=== PATIENT | female | born 1960 | race Caucasian/White ===

== ENCOUNTER → 2016-11-23 | Outpatient (REF) | payer OTHER ==
[~2016-11-23] MED LIST: AMBI10TA PO; ASPI81TA85 PO; LISI40TAB PO
== END ==
LOC: M LAB REF 16:56
PROVIDERS: ATTEND Nurse Practitioner Family
DX: N39.0 Urinary tract infection, site not specified (principal)

== ENCOUNTER → 2017-01-25 | Outpatient (CLI) | payer OTHER ==
--- NOTE | 2017-01-26 04:12 | REP ---
Clinical: Hypothyroidism Technique: Real time ahn scale and color evaluation using linear high frequency transducer. Findings: The thyroid gland is diffusely heterogeneous and demonstrates bilateral nonspecific nodules. Right lobe measures 4.1 x 1.7 x 1.6 cm with the largest nodule in the mid pole being hyperemic, isoechoic and measuring 9.5 mm maximal diameter. Smaller isoechoic and hypoechoic nonspecific complex nodules in the right lobe measure up to 5.5 mm maximal diameter. Left lobe measures 3.4 x 1.3 x 1.3 cm with multiple isoechoic/hypoechoic nonspecific complex nodules measuring up to 6.4 mm maximal diameter. Impression: Multiple nonspecific nodules noted bilaterally. Largest nodule appears hyperemic within the right lobe and measures 9.5 mm maximal diameter. Signed by Donaldo Hackett MD 01/26/2017 04:04 A
== END ==
LOC: M RAD 13:04
PROVIDERS: ATTEND Physician Assistant Medical
DX: E03.9 Hypothyroidism, unspecified (principal)

== ENCOUNTER → 2017-03-26 | Outpatient (REF) | payer OTHER | LOC: M LAB REF 13:11 | PROVIDERS: ATTEND Internal Medicine Endocrinology, Diabetes & Metabolism | DX: E04.1 Nontoxic single thyroid nodule (principal) ==

== ENCOUNTER → 2018-01-18 | Outpatient (CLI) | payer OTHER ==
[2018-01-18 12:02] LABS: BASO % 0.6 % (0.0-1.0); EOS # 0.1 10^3/uL (0.0-0.50); EOS % 1.4 % (0.0-3.0); HEMATOCRIT 44.3 % (36.0-47.0); HEMOGLOBIN 14.9 g/dl (12.0-15.5); IMMATURE GRANULOCYTE % 0.3 % (0-3.0); LYMPH # 2.2 10^3/uL (1.5-4.5); LYMPH % 31.2 % (24.0-44.0); MEAN CORPUSCULAR HGB CONC 33.6 g/dl (32.0-36.5); MEAN CORPUSCULAR VOLUME 89.1 fl (80.0-96.0); MONO # 0.4 10^3/uL (0.0-0.8); MONO % 5.3 % (0.0-5.0); NEUTROPHILS # 4.3 10^3/uL (1.8-7.7); NEUTROPHILS % 61.2 % (36.0-66.0); PLATELET COUNT, AUTOMATED 190 10^3/uL (150-450); RED BLOOD COUNT 4.97 10^6/uL (4.00-5.40)
[2018-01-18 12:50] LABS: ALBUMIN 4.6 GM/DL (3.2-5.2); ALBUMIN/GLOBULIN RATIO 1.35 (1.00-1.93); ALKALINE PHOSPHATASE 49 U/L (45-117); ALT/SGPT 20 U/L (12-78); ANION GAP 6 MEQ/L (8-16); AST/SGOT 16 U/L (7-37); BILIRUBIN,TOTAL 0.3 MG/DL (0.2-1.0); BLOOD UREA NITROGEN 25 MG/DL (7-18); C REACTIVE PROTEIN QUANTITATIV 0.32 MG/DL (0.00-0.30); CALCIUM LEVEL 9.3 MG/DL (8.5-10.1); CARBON DIOXIDE LEVEL 26 MEQ/L (21-32); CHLORIDE LEVEL 110 MEQ/L (98-107); CPK CREATINE PHOSPHOKINASE 81 U/L (26-192); GLOMERULAR FILTRATION RATE > 60.0 (>51); GLUCOSE, FASTING 91 MG/DL (70-100); POTASSIUM SERUM 4.5 MEQ/L (3.5-5.1); SODIUM LEVEL 142 MEQ/L (136-145); TROPONIN I < 0.02 NG/ML (< 0.10)
[2018-01-18 12:57] LABS: CK-MB VALUE MASS < 1.0 NG/ML (<3.6); MB/CK RELATIVE INDEX 1.23 (< OR =4)
== END ==
LOC: M WUC 10:22
DX: I10 Essential (primary) hypertension (principal)
CPT/HCPCS: 82550

== ENCOUNTER → 2018-10-14 | Outpatient (CLI) | payer OTHER ==
[~2018-10-14] MED LIST changes: +AMBI12.52 PO; +LISI40TA PO; +MOBI15TA PO; +VARE1TA PO; +VITMTA PO
--- NOTE | 2018-10-14 10:04 | REP ---
Chest two views HISTORY: Preop Comparison: None The lungs are clear. The heart is normal in size. The pulmonary vasculature is normal in appearance. The bony structure is intact. IMPRESSION: No acute disease. Electronically Signed by Monroe Keys MD 10/14/2018 09:56 A
[2018-10-14 10:19] LABS: HEMATOCRIT 36.8 % (36.0-47.0); HEMOGLOBIN 12.1 g/dl (12.0-15.5); MEAN CORPUSCULAR HEMOGLOBIN 30.3 pg (27.0-33.0); MEAN CORPUSCULAR HGB CONC 32.9 g/dl (32.0-36.5); PLATELET COUNT, AUTOMATED 154 10^3/uL (150-450); WHITE BLOOD COUNT 7.2 10^3/uL (4.0-10.0)
[2018-10-14 10:26] LABS: INR 0.95; PROTHROMBIN TIME 12.7 SECONDS (12.1-14.4)
[2018-10-14 10:46] LABS: ALBUMIN 3.5 GM/DL (3.2-5.2); ALT/SGPT 187 U/L (12-78); BILIRUBIN,TOTAL 0.3 MG/DL (0.2-1.0); BLOOD UREA NITROGEN 19 MG/DL (7-18); CARBON DIOXIDE LEVEL 25 MEQ/L (21-32); CHLORIDE LEVEL 105 MEQ/L (98-107); CREATININE FOR GFR 0.62 MG/DL (0.55-1.30); GLOMERULAR FILTRATION RATE > 60.0 (>51); GLUCOSE, FASTING 115 MG/DL (70-100); POTASSIUM SERUM 3.8 MEQ/L (3.5-5.1); SODIUM LEVEL 138 MEQ/L (136-145); TOTAL PROTEIN 7.4 GM/DL (6.4-8.2)
[2018-10-14 10:51] LABS: ERYTHROCYTE SEDIMENTATION RATE 56 mm/hr (0-30)
--- NOTE | 2018-10-14 22:04 | ECGEPIP ---
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 No prior ECG available for comparison at the time of interpretation. Electronically Signed On 10-14-2018 22:04:09 EST by Jean-Paul Hinojosa
== END ==
LOC: M LAB 09:28
PROVIDERS: ATTEND Orthopaedic Surgery
DX: Z01.818 Encounter for other preprocedural examination (principal)

== ENCOUNTER 2018-10-24 07:09 | Inpatient (IN) | payer OTHER ==
--- NOTE | 2018-10-20 14:02 | HPE ---
DATE OF ADMISSION: 10/24/2018 ATTENDING PHYSICIAN: Dr. Madhav Gonzalez CHIEF COMPLAINT: Right hip pain and stiffness. HISTORY: This is a pleasant 58-year-old female with progressively worsening right hip pain and stiffness. She has failed to improve with conservative management and has elected for surgery for her continued symptoms. She has consented for a right total hip arthroplasty by Dr. Gonzalez. ALLERGIES: - PENICILLIN CURRENT MEDICATIONS: - Ambien 5 mg one by mouth (p.o.) at bedtime as needed (p.r.n.) - aspirin 81 mg one p.o. daily - carvedilol 3.125 mg one p.o. twice a day (b.i.d.) - lisinopril 40 mg one p.o. daily (q.d.) - meloxicam 7.5 mg one p.o. daily - tramadol 50 mg one every 4-6 hours p.r.n. - vitamin D 2000 units one p.o. daily PAST MEDICAL HISTORY: Hypertension. PAST SURGICAL HISTORY: Noncontributory. FAMILY HISTORY: Noncontributory. SOCIAL HISTORY: The patient is a nonsmoker and only drinks alcohol occasionally. REVIEW OF SYSTEMS: She denies fever, chills, chest pain, shortness breath, nausea, vomiting, diarrhea, recent upper respiratory or urinary tract infection symptoms. Does report pain and stiffness in the right hip. PHYSICAL EXAMINATION: Vital Signs: Height 5 feet 4 inches, weight 143, temperature 98.1, blood pressure 140/60, pulse 62, respirations 18. The patient is normocephalic, atraumatic. She ambulates into the clinic today with a slightly antalgic gait favoring the right side. Neck is supple with no lymphadenopathy or jugular venous distention (JVD). S1 and S2 auscultated. No murmurs, rubs or gallops. Lungs were clear to auscultation bilaterally with no wheezes, rales, or rhonchi. Abdomen is soft and nontender. The right hip shows intact range of motion with pain at the extremes of motion. Overlying skin is intact with no erythema, ecchymosis or edema. ELECTROCARDIOGRAM (EKG): Shows normal sinus rhythm. CHEST X-RAY: With no acute cardiopulmonary processes. LABORATORY FINDINGS: Show a white blood count of 7.2, red blood count 4.0, hemoglobin 12.1, hematocrit 36.8, ESR 56, BUN 19, creatinine 0.62, PT 12.7, INR 0.95. PREOPERATIVE MEDICAL OPTIMIZATION: Done by Dr. Barker, but is not available for review. Cardiac consultation was reviewed today on the patient's chart. IMPRESSION: Right hip with symptomatic degenerative changes. PLAN: Consented for right hip total arthroplasty by Dr. Gonzalez.
[2018-10-24] VITALS (11 sets, daily range): BP systolic 111–156; BP diastolic 65–92
[~2018-10-24] VITALS: Ht 160 cm; Wt 67.1 kg
[~2018-10-24 07:09] MED LIST changes: +ACETAMINOPHEN 500 MG TAB PO ONE; +LR 1,000 ML IV ONE
[2018-10-24] MEDS ORDERED: CARV3.12 PO (08:11)
[2018-10-24] MEDS ORDERED: MUPI2OI (08:11)
[2018-10-24] MEDS ORDERED: SCOPOLAMINE 1MG TRANSDERMAL PATCH TOP ONE ×2 (08:15→09:00)
[2018-10-24] MEDS ORDERED: CARVedilol 3.125 MG TAB PO ONE (09:00)
[2018-10-24] MEDS ORDERED: PROPOFOL 200 MG/20 ML VIAL As Ordered ONE (09:36)
[2018-10-24] MEDS ORDERED: MIDAZOLAM INJ 5 MG/ML VIAL (J2250) As Ordered ONE (09:36)
[2018-10-24] MEDS ORDERED: fentaNYL 100 MCG/2 ML INJECTION (J3010) As Ordered ONE (09:36)
[2018-10-24] MEDS ORDERED: ceFAZolin 1GM INJ (J0690 PER 500MG) As Ordered ONE (10:11)
[2018-10-24] MEDS ORDERED: BUPIVACAINE/DEXTROSE 0.75% 2 ML AMP As Ordered ONE (10:30)
[2018-10-24] MEDS ORDERED: PHENYLephrine HCL 500 MCG/5 ML (100MCG/ML) SYRINGE (J2370) As Ordered ONE ×2 (10:51→11:16)
[2018-10-24] MEDS ORDERED: MORPHINE 1MG/ML IN 0.9% NACL 100ML IV BAG As Ordered ONE (12:00)
[2018-10-24] MEDS ORDERED: METOCLOPRAMIDE INJ 10MG/2ML VIAL (J2765) IV PRN (12:45)
[2018-10-24] MEDS ORDERED: PERCOCET 5MG/325MG TAB PO PRN (12:45)
[2018-10-24] MEDS ORDERED: ONDANSETRON 4MG/2ML VIAL (J2405) IV PRN ×2 (12:45→13:00)
[2018-10-24] MEDS ORDERED: fentaNYL 100 MCG/2 ML INJECTION (J3010) IV PRN (12:45)
[2018-10-24] MEDS ORDERED: MEPERIDINE INJ 25 MG/ML VIAL (J2175) IV PRN (12:45)
[2018-10-24] MEDS ORDERED: LR 1,000 ML IV SCH (12:45)
[2018-10-24] MEDS ORDERED: diphenhydrAMINE INJ 50MG/ML VIAL (J1200) IV PRN (13:00)
[2018-10-24] MEDS ORDERED: ACETAMINOPHEN TAB 650MG DOSE (2X325MG) PO PRN (13:00)
[2018-10-24] MEDS ORDERED: NALOXONE INJ 0.4 MG/1 ML VIAL (J2310) IV PRN (13:00)
[2018-10-24] MEDS ORDERED: FLEET ENEMA PR PRN (13:00)
[2018-10-24] MEDS: LR 1,000 ML IV SCH (13:00)
[2018-10-24] MEDS ORDERED: MORPHINE 1MG/ML IN 0.9% NACL 100ML IV BAG IV PRN (13:00)
[2018-10-24] MEDS ORDERED: EPIDURAL/PCA KEYS XX PRN (13:00)
[2018-10-24] MEDS ORDERED: NALBUPHINE HCL 10 MG/ML AMP (J2300) IV PRN (13:00)
[2018-10-24] MEDS ORDERED: CelecoXIB (CeleBREX) 100 MG CAP PO ONE (15:15)
--- NOTE | 2018-10-24 15:19 | REP ---
RIGHT HIP, TWO VIEWS: Two portable of the right hip were performed. There is placement of a total hip prosthesis which appears to be in good position. Osseous structures are intact. There is spurring of the superolateral acetabulum. Metallic skin crystal are seen laterally. Electronically Signed by Billy Moore MD 10/24/2018 05:11 P
[2018-10-25 01:30] VITALS: BP 132/83
[2018-10-25] MEDS: LR 1,000 ML IV SCH (01:30)
[2018-10-25 06:00] VITALS: BP 132/83
[2018-10-25] MEDS ORDERED: PERCOCET 5MG/325MG TAB PO PRN ×2 (06:30)
[2018-10-25] MEDS ORDERED: ONDANSETRON 4 MG TAB (S0181) PO PRN (06:30)
[2018-10-25 06:35] LABS: HEMATOCRIT 34.8 % (36.0-47.0); HEMOGLOBIN 11.4 g/dl (12.0-15.5); MEAN CORPUSCULAR HEMOGLOBIN 29.7 pg (27.0-33.0); MEAN CORPUSCULAR HGB CONC 32.8 g/dl (32.0-36.5); MEAN CORPUSCULAR VOLUME 90.6 fl (80.0-96.0); PLATELET COUNT, AUTOMATED 150 10^3/uL (150-450); RED BLOOD COUNT 3.84 10^6/uL (4.00-5.40); WHITE BLOOD COUNT 6.9 10^3/uL (4.0-10.0)
[2018-10-25 06:53] LABS: BLOOD UREA NITROGEN 9 MG/DL (7-18); CALCIUM LEVEL 8.6 MG/DL (8.5-10.1); CARBON DIOXIDE LEVEL 26 MEQ/L (21-32); CHLORIDE LEVEL 100 MEQ/L (98-107); GLOMERULAR FILTRATION RATE > 60.0 (>51); GLUCOSE, FASTING 114 MG/DL (70-100); POTASSIUM SERUM 4.1 MEQ/L (3.5-5.1); SODIUM LEVEL 133 MEQ/L (136-145)
[2018-10-25] MEDS ORDERED: PERC5TAB12 PO (08:21)
[2018-10-25] MEDS ORDERED: XARE10TA PO (08:21)
[2018-10-25] MEDS ORDERED: SENOKOT S TAB PO SCH (09:00)
[2018-10-25] MEDS ORDERED: MOM 30ML SUSPENSION UDC PO SCH (09:00)
[2018-10-25] MEDS ORDERED: MIRALAX *UNIT DOSE* 17GM PACKET PO SCH (09:00)
--- NOTE | 2018-10-25 10:22 | RO ---
DATE OF OPERATION: 10/24/2018 PREOPERATIVE DIAGNOSIS: Right hip degenerative arthritis. POSTOPERATIVE DIAGNOSIS: Right hip degenerative arthritis. PROCEDURE: Right total hip arthroplasty using a size 5 high-offset [place] stem with a 1.5 neck, 32 mm ceramic head, and a 50 mm Gription cup with a 32 mm polyethylene AltrX liner. SURGEON: Tori Gonzalez MD COMPUTER REPAIR INSTRUCTOR: CHAYO Kaba ANESTHESIA: Spinal. COMPLICATIONS: None. ESTIMATED BLOOD LOSS: 200 mL. SPECIMENS: Femoral head. DESCRIPTION OF PROCEDURE: Antibiotics were given intravenously preoperatively, and a successful spinal anesthetic was induced. She was placed in a lateral position. A [place] hip positioner was utilized. Down leg well padded, especially the perineal nerve, and the axillary roll was utilized. The right hip area was then carefully prepped and draped in the usual sterile fashion. After appropriate time-out, a longitudinal incision was made for a direct anterolateral approach to the hip. Bovie cautery was used to coagulate crossing vessels down to the tensor fascia, which was then divided in line with the skin incision. Then, the gluteus medius split in the anterior one-third and posterior two-third junction. We dissected down to the gluteus minimus and anterior hip capsule, carefully dissected down, and reflect the soft tissues anteriorly off the greater trochanter as we then eventually externally rotated and dislocated the hip and placed her leg in a leg bag anteriorly. The pyriformis fossa was identified. A starter reamer placed, followed by the canal-finding reamer, then the lateralizing reamer. Then, we reamed up to a size 5 reamer. A femoral neck osteotomy performed and broached up to a #5, calcar planer utilized. We then exposed the acetabulum, performed a labral excision 360 degrees, and then began reaming. She was quite dysplastic and lateralized, and we had to deepen the cup a bit to get back down to the teardrop starting at a 46 mm and advancing up to 49. The trial fit nicely at 50 using the extramedullary alignment jig. We then asked for the real Gription cup, irrigating out the acetabulum thoroughly and then placed the real cup with the assistance of the extramedullary alignment jig to help set our abduction and version. The cup seated nicely and fit nicely, and then the central hole eliminator was placed, irrigated again, and placed the real polyethylene, made sure it was seated properly, and then exposed the femoral canal once again, and copiously irrigated it, placed the broach, trialed with the high-offset 1.5, and that fit very nicely in terms of stability and with flexion internal rotation and extension external rotation. She had a trace of telescoping but not enough to justify going to a +5. We then removed all the trial components and copiously irrigated out the femoral canal, placed the real stem, and it seated just where we were with the broach. Therefore, I went with a 1.5 neck. After drying the trunnion, placed the ceramic head, and then we reduced the hip after irrigating once again. We then closed the gluteus minimus and anterior capsule back anatomically with interrupted #1 polydioxanone suture (PDS) sutures, closing the abductor gluteus minimus muscle back anatomically with interrupted #1 PDS suture, irrigating between layers, closed the tensor fascia with combination of [place] #1 PDS sutures and a running Stratafix #1. We then irrigated again, closed the deep subdermal tissues with interrupted #2-0 PDS sutures. The skin was closed with crystal, covered by an Optifoam dry sterile bulky dressing. She was then turned supine and then transferred to the recovery room in stable condition. There were no intraoperative complications. Mr. Tee Gill was critical to the success of this difficult surgery by helping to manipulate the leg in and out of the leg bag anteriorly, helped with appropriate soft tissue retraction, helped to close the wound, helped to prepare the patient otherwise, amongst many other tasks to allow me to perform the operation smoothly and efficiently.
[2018-10-25] MEDS ORDERED: RIVAROXABAN 10 MG TAB (XARELTO) PO SCH (18:00)
== END 2018-10-25 11:20 | disposition home or self-care (01) | DRG 301 ==
LOC: M OR 07:09 → M MS5PR 13:10
PROVIDERS: ADMIT Orthopaedic Surgery; ATTEND Orthopaedic Surgery
PROC: 0SR90JA Replacement of Right Hip Joint with Synthetic Substitute, Uncemented, Open Approach (ICD-10-PCS; principal; 2018-10-24 09:45)
DX: M16.11 Unilateral primary osteoarthritis, right hip (principal); I10 Essential (primary) hypertension; Z88.0 Allergy status to penicillin; Z79.899 Other long term (current) drug therapy; Z79.82 Long term (current) use of aspirin

== ENCOUNTER → 2019-05-22 | Outpatient (CLI) | payer OTHER ==
[~2019-05-22] MED LIST changes: -ACETAMINOPHEN 500 MG TAB PO ONE; +CARV3.12 PO; +LISI40TA52 PO; -LISI40TAB PO; -LR 1,000 ML IV ONE; +MUPI2OI; +PERC5TAB12 PO; +XARE10TA PO
--- NOTE | 2019-05-22 09:49 | REP ---
Low-dose lung screening CT of the chest: The study is performed without IV contrast. The images are presented at lung windowing only. There are no comparison CT studies. There is a comparison plain film PA and lateral study of the chest dated 10/14/2018. There is a 7 mm nodule medially in the apex of the left upper lobe on image 12. This is not visible on the comparison PA and lateral plain film study. There are no other nodules or masses. There are no infiltrates or effusions. There are is a small linear density in the right lower lobe and a small linear density in the left lower lobe. These likely represent parenchymal scars or discoid atelectasis. Impression: The 7 mm nodule medially in apex of the left upper lobe is a category 3.0 lung nodule. The probability of malignancy is 1%-2%. Follow-up chest CT in 6 months is recommended for further evaluation. Electronically Signed by Billy Hahn MD 05/22/2019 09:40 A
== END ==
LOC: M RAD 08:03
PROVIDERS: ATTEND Student in an Organized Health Care Education/Training Program
DX: Z12.2 Encounter for screening for malignant neoplasm of respiratory organs (principal); F17.210 Nicotine dependence, cigarettes, uncomplicated

== ENCOUNTER 2019-06-13 06:40 | Day surgery (SDC) | payer OTHER ==
[~2019-06-13] VITALS: Ht 162.6 cm; Wt 66.7 kg
[~2019-06-13 06:40] MED LIST changes: +ECOT81TA5 PO; +IRON325T9 PO
[2019-06-13] MEDS ORDERED: NS 1,000 ML IV ONE (07:00)
[2019-06-13] MEDS ORDERED: LIDOCAINE 2% INJ 100 MG/5 ML SDV (FOR ANES.) As Ordered ONE (07:20)
[2019-06-13] MEDS ORDERED: PROPOFOL 200 MG/20 ML VIAL As Ordered ONE (07:20)
--- NOTE | 2019-06-13 07:55 | ROOR ---
Patient Name: Debora Bang Procedure Date: 06/13/2019 7:38 AM Date of : 1960 Age: 59 Room: [facility] Gender: Female Note Status: Finalized Procedure: Colonoscopy Indications: High risk colon cancer surveillance: Personal history of colonic polyps, Last colonoscopy: February 2016 Providers: Jean-Paul GASTON MD Referring MD: [facility] YENNI Monica [facility] Kimberly Requesting Provider: Medicines: Monitored Anesthesia Care Complications: No immediate complications. Procedure: Pre-Anesthesia Assessment: - The heart rate, respiratory rate, oxygen saturations, blood pressure, adequacy of pulmonary ventilation, and response to care were monitored throughout the procedure. The Colonoscope was introduced through the anus and advanced to the cecum, identified by appendiceal orifice and ileocecal valve. The colonoscopy was performed without difficulty. The patient tolerated the procedure well. The quality of the bowel preparation was good. Findings: The perianal and digital rectal examinations were normal. A diminutive polyp was found in the hepatic flexure. The polyp was sessile. The polyp was removed with a cold snare. Resection and retrieval were complete. Retroflexion in the right colon was performed. A tattoo was seen in the sigmoid colon. A post-polypectomy scar was found at the tattoo site. There was no evidence of residual polyp tissue. The exam was otherwise without abnormality on direct and retroflexion views. Impression: - One diminutive polyp at the hepatic flexure, removed with a cold snare. Resected and retrieved. - A tattoo was seen in the sigmoid colon. A post-polypectomy scar was found at the tattoo site. There was no evidence of residual polyp tissue. - The examination was otherwise normal on direct and retroflexion views. Recommendation: - Repeat colonoscopy in 5 years for surveillance. Jean-Paul Gaston MD Jean-Paul GASTON MD 06/13/2019 7:54:30 AM Electronically signed by Jean-Paul GASTON MD Number of Addenda: 0 Note Initiated On: 06/13/2019 7:38 AM Estimated Blood Loss: Estimated blood loss: none.
[2019-06-13 08:16] VITALS: BP 162/76
== END 2019-06-13 08:18 | disposition home or self-care (01) ==
LOC: M OPP 06:40
PROVIDERS: ATTEND Internal Medicine Gastroenterology
DX: Z12.11 Encounter for screening for malignant neoplasm of colon (principal); Z86.010 Personal history of colon polyps; D12.3 Benign neoplasm of transverse colon; Z79.899 Other long term (current) drug therapy; Z88.0 Allergy status to penicillin

== ENCOUNTER → 2019-12-05 | Outpatient (CLI) | payer OTHER ==
--- NOTE | 2019-12-05 15:45 | REPVR ---
PROCEDURE INFORMATION: Exam: CT Chest Without Contrast Exam date and time: 12/05/2019 3:13 PM Age: 59 years old Clinical indication: Condition or disease; Lung condition and disease; Pulmonary nodule, solitary; Additional info: Lung nodule TECHNIQUE: Imaging protocol: Computed tomography of the chest without contrast. 3D rendering: MIP and/or 3D reconstructed images were created by the technologist. Radiation optimization: All CT scans at this facility use at least one of these dose optimization techniques: automated exposure control; mA and/or kV adjustment per patient size (includes targeted exams where dose is matched to clinical indication); or iterative reconstruction. COMPARISON: Chest CT 05/22/19 The prior report is not available for correlation at the time of interpretation. FINDINGS: Lungs: Emphysematous change and mild interstitial prominence. Stable 5.5 mm well-circumscribed nodule in the medial left apex. For patients at low risk (minimal or absent history of smoking and of other known risk factors), no routine follow-up is indicated. For patients at high risk (history of smoking or of other known risk factors), consider optional CT at 12 months. (Mitesh et al., Fleischner Society, 2017). Pleural space: Mild pleural thickening. Heart: No cardiomegaly or significant pericardial effusion. Aorta: Calcification and ectasia of the thoracic aorta. Lymph nodes: Subcentimeter lymph nodes. Bones/joints: Schmorl's nodes and marginal osteophytes. Upper abdomen: Punctate calcification in the left hepatic lobe. IMPRESSION: 1. Stable 5.5 mm well-circumscribed nodule in the medial left apex. 2. Additional findings as described above. Electronically signed by: Milan Alarcon On 12/05/2019 15:44:53 PM
== END ==
LOC: M RAD 15:02
PROVIDERS: ATTEND Student in an Organized Health Care Education/Training Program
DX: R91.1 Solitary pulmonary nodule (principal)

== ENCOUNTER → 2020-10-02 | Outpatient (CLI) | payer OTHER ==
[~2020-10-02] MED LIST changes: -ASPI81TA85 PO; +ASPI81TA86 PO
--- NOTE | 2020-10-02 10:44 | REPMRS ---
Patient History The patient states she had a clinical breast exam in July 2020. No known family history of cancer. Digital Woman Screen Mammo: October 02, 2020 - Exam #: [id number] Bilateral CC and MLO view(s) were taken. Technologist: Jade Chowdary, Technologist Prior study comparison: July 13, 2019, bilateral digital mammo screening bilat, performed at [facility]. May 07, 2015, left breast digital mammo diagnostic unilateral, performed at [facility]. May 01, 2015, bilateral digital mammo screening bilat, performed at [facility]. FINDINGS: There are scattered fibroglandular densities. The Volpara volumetric breast density category is:B. There has been no change in the appearance of the mammogram from the prior studies. There is a mild amount of scattered fibroglandular density which is fairly symmetric. There is no interval development of dominant mass, architectural distortion, or grouped microcalcification suggestive of malignancy. 3-D tomosynthesis shows no additional findings. Assessment: BI-RADS/ACR category 1 mammogram. Negative Mammogram. Recommendation Routine screening mammogram of both breasts in 1 year (for women over age 40). This patient's [facility] Lifetime Breast Cancer Risk is estimated at 6.6 %. This mammogram was interpreted with the aid of an FDA-approved computer-aided dectection system. Electronically Signed By: Lacho Segal MD 10/02/20 2122
== END ==
LOC: M WHC 10:05
PROVIDERS: ATTEND Student in an Organized Health Care Education/Training Program
DX: Z12.31 Encounter for screening mammogram for malignant neoplasm of breast (principal)

== ENCOUNTER → 2020-10-15 | Outpatient (REF) | payer OTHER | LOC: M SFHCPLAZ 08:47 | PROVIDERS: ATTEND Family Medicine | DX: Z13.220 Encounter for screening for lipoid disorders (principal) ==

== ENCOUNTER → 2020-11-25 | Outpatient (CLI) | payer OTHER ==
[~2020-11-25] MED LIST changes: -LISI40TA PO; +LISI40TA4 PO
[2020-11-25 10:30] LABS: CHOLESTEROL RISK RATIO 3.242 (<5)
== END ==
LOC: M LAB 08:37
PROVIDERS: ATTEND Student in an Organized Health Care Education/Training Program
DX: Z13.220 Encounter for screening for lipoid disorders (principal)

== ENCOUNTER → 2020-12-12 | Outpatient (CLI) | payer OTHER ==
--- NOTE | 2020-12-12 14:48 | REP ---
INDICATION: SOLITARY PULMONARY NODULE COMPARISON: 05/22/2019 TECHNIQUE: Axial noncontrast images from the thoracic inlet to the upper abdomen with coronal and sagittal reformations. This CT examination was performed using the following dose reduction techniques: Automated exposure control, adjustment of mA and/or kv according to the patient's size, and use of iterative reconstruction technique. FINDINGS: A 7 mm noncalcified nodule along the medial left apex remains stable compared through 2019. The bilateral lung quiroz are otherwise well aerated and clear. No further consolidation, suspicious nodule or mass. No effusion. No pneumothorax. Tracheobronchial tree is patent. No adenopathy. Mediastinum demonstrates atherosclerotic changes to the thoracic aorta and coronary arteries without aortic aneurysm or cardiomegaly. No pericardial effusion. Musculoskeletal structures are intact. IMPRESSION: Stable 7 mm noncalcified nodule unchanged compared to 2019. No new acute mediastinal or pleuroparenchymal process appreciated. <Electronically signed by Donaldo Hackett > 12/12/20 [id number]
== END ==
LOC: M RAD 14:11
PROVIDERS: ATTEND Student in an Organized Health Care Education/Training Program
DX: R91.1 Solitary pulmonary nodule (principal)

== ENCOUNTER → 2021-12-23 | Outpatient (CLI) | payer OTHER | LOC: M RAD 13:57 | PROVIDERS: ATTEND Student in an Organized Health Care Education/Training Program | DX: R91.1 Solitary pulmonary nodule (principal) ==

== ENCOUNTER 2022-03-18 10:56 | Emergency (ER) | payer OTHER ==
[~2022-03-18] VITALS: Ht 162.6 cm; Wt 69.7 kg
[2022-03-18 10:56] VITALS: BP 182/92
== END 2022-03-18 11:04 | disposition left against medical advice (07) ==
LOC: M ED 10:56
DX: Z53.21 Procedure and treatment not carried out due to patient leaving prior to being seen by health care provider (principal)

== ENCOUNTER → 2022-03-18 | Outpatient (REF) | payer OTHER | LOC: M SFHCPLAZ 08:49 | PROVIDERS: ATTEND Family Medicine | DX: I10 Essential (primary) hypertension (principal) ==

== ENCOUNTER → 2022-03-18 | Outpatient (CLI) | payer OTHER ==
[2022-03-18 14:16] LABS: BLOOD UREA NITROGEN 20 MG/DL (7-18); CALCIUM LEVEL 9.6 MG/DL (8.5-10.1); CARBON DIOXIDE LEVEL 28 MEQ/L (21-32); CHLORIDE LEVEL 111 MEQ/L (98-107); CREATININE FOR GFR 0.72 MG/DL (0.55-1.30); GLOMERULAR FILTRATION RATE > 60.0 (>51); GLUCOSE, FASTING 84 MG/DL (70-100); POTASSIUM SERUM 5.1 MEQ/L (3.5-5.1); SODIUM LEVEL 142 MEQ/L (136-145); THYROID STIMULATING HORMONE 0.609 uIU/ML (0.358-3.740)
== END ==
LOC: M PLALAB 09:39
PROVIDERS: ATTEND Student in an Organized Health Care Education/Training Program
DX: I10 Essential (primary) hypertension (principal)

== ENCOUNTER → 2022-03-25 | Outpatient (CLI) | payer OTHER ==
[2022-03-25 10:39] LABS: APPEARANCE, URINE CLEAR (CLEAR); BACTERIA, URINE AUTO NEGATIVE (NEGATIVE); BILIRUBIN, URINE AUTO NEGATIVE (NEGATIVE); BLOOD, URINE BLOOD NEGATIVE (NEGATIVE); COLOR, URINE COLORLESS (YELLOW); GLUCOSE, URINE (UA) AUTO NEGATIVE (NEGATIVE); KETONE, URINE AUTO NEGATIVE (NEGATIVE); LEUKOCYTE ESTERASE, URINE AUTO NEGATIVE (NEGATIVE); NITRITE, URINE AUTO NEGATIVE (NEGATIVE); PROTEIN, URINE AUTO NEGATIVE (NEGATIVE); RBC, URINE AUTO 0 /HPF (0-3); SPECIFIC GRAVITY URINE AUTO 1.002 (1.002-1.035); SQUAMOUS EPITHELIAL CELL UR AU 1 /HPF (0-6); UROBILINOGEN, URINE AUTO 0.2 mg/dL (0.0-2.0); WBC, URINE AUTO 0 /HPF (0-3)
[2022-03-25 10:57] LABS: HEMATOCRIT 45.6 % (36.0-47.0); HEMOGLOBIN 15.6 g/dl (12.0-15.5); MEAN CORPUSCULAR HEMOGLOBIN 31.3 pg (27.0-33.0); MEAN CORPUSCULAR HGB CONC 34.2 g/dl (32.0-36.5); MEAN CORPUSCULAR VOLUME 91.6 fl (80.0-96.0); PLATELET COUNT, AUTOMATED 193 10^3/uL (150-450); RED BLOOD COUNT 4.98 10^6/uL (4.00-5.40); WHITE BLOOD COUNT 9.1 10^3/uL (4.0-10.0)
[2022-03-25 11:33] LABS: BLOOD UREA NITROGEN 20 MG/DL (7-18); CALCIUM LEVEL 9.9 MG/DL (8.5-10.1); CARBON DIOXIDE LEVEL 28 MEQ/L (21-32); CHLORIDE LEVEL 99 MEQ/L (98-107); CHOLESTEROL LEVEL 160 MG/DL (<200); CHOLESTEROL RISK RATIO 2.461 (<5); CREATININE FOR GFR 0.76 MG/DL (0.55-1.30); FREE T4 1.34 NG/DL (0.76-1.46); GLOMERULAR FILTRATION RATE > 60.0 (>51); GLUCOSE, FASTING 92 MG/DL (70-100); HDL CHOLESTEROL 65 MG/DL (>40); LDL CHOLESTEROL 73 MG/DL (<100); NON-HDL-C 95 MG/DL; SODIUM LEVEL 135 MEQ/L (136-145); TRIGLYCERIDES LEVEL 108 MG/DL (<150)
== END ==
LOC: M PLALAB 08:56
PROVIDERS: ATTEND Student in an Organized Health Care Education/Training Program
DX: I10 Essential (primary) hypertension (principal); E78.00 Pure hypercholesterolemia, unspecified; R53.83 Other fatigue

== ENCOUNTER → 2022-03-25 | Outpatient (REF) | payer OTHER | LOC: M SFHCPLAZ 08:45 | PROVIDERS: ATTEND Family Medicine | DX: Z53.20 Procedure and treatment not carried out because of patient's decision for unspecified reasons (principal) ==

== ENCOUNTER → 2022-04-01 | Outpatient (CLI) | payer OTHER ==
[2022-04-01 10:44] LABS: BLOOD UREA NITROGEN 19 MG/DL (7-18); CALCIUM LEVEL 9.5 MG/DL (8.5-10.1); CARBON DIOXIDE LEVEL 29 MEQ/L (21-32); CHLORIDE LEVEL 102 MEQ/L (98-107); CREATININE FOR GFR 0.76 MG/DL (0.55-1.30); GLOMERULAR FILTRATION RATE > 60.0 (>51); GLUCOSE, FASTING 76 MG/DL (70-100); POTASSIUM SERUM 4.2 MEQ/L (3.5-5.1); SODIUM LEVEL 137 MEQ/L (136-145)
== END ==
LOC: M PLALAB 08:45
PROVIDERS: ATTEND Student in an Organized Health Care Education/Training Program
DX: E78.1 Pure hyperglyceridemia (principal)

== ENCOUNTER → 2023-03-18 | Outpatient (CLI) | payer OTHER | LOC: M PLAIMG 09:52 | PROVIDERS: ATTEND Student in an Organized Health Care Education/Training Program | DX: R91.1 Solitary pulmonary nodule (principal) ==

== ENCOUNTER → 2023-04-09 | Outpatient (REF) | payer OTHER | LOC: M SFHCPLAZ 13:20 | PROVIDERS: ATTEND Family Medicine | DX: Z53.9 Procedure and treatment not carried out, unspecified reason (principal) ==

== ENCOUNTER → 2023-04-09 | Outpatient (CLI) | payer OTHER ==
[2023-04-09 14:40] LABS: BASO % 0.3 % (0.0-1.0); EOS # 0.1 10^3/uL (0.0-0.5); EOS % 1.5 % (0.0-3.0); HEMATOCRIT 39.7 % (36.0-47.0); HEMOGLOBIN 13.3 g/dl (12.0-15.5); LYMPH # 2.6 10^3/uL (1.5-5.0); LYMPH % 35.4 % (24.0-44.0); MEAN CORPUSCULAR HEMOGLOBIN 31.4 pg (27.0-33.0); MEAN CORPUSCULAR HGB CONC 33.5 g/dl (32.0-36.5); MEAN CORPUSCULAR VOLUME 93.6 fl (80.0-96.0); MONO # 0.4 10^3/uL (0.0-0.8); MONO % 5.9 % (2.0-8.0); NEUTROPHILS # 4.2 10^3/uL (1.5-8.5); NEUTROPHILS % 56.6 % (36.0-66.0); PLATELET COUNT, AUTOMATED 179 10^3/uL (150-450); RED BLOOD COUNT 4.24 10^6/uL (4.00-5.40); WHITE BLOOD COUNT 7.3 10^3/uL (4.0-10.0)
[2023-04-09 15:04] LABS: BLOOD UREA NITROGEN 24 MG/DL (9-23); CALCIUM LEVEL 10.3 MG/DL (8.3-10.6); CARBON DIOXIDE LEVEL 27 MMOL/L (20-31); CHLORIDE LEVEL 103 MMOL/L (98-107); CHOLESTEROL LEVEL 142 MG/DL (<200); CREATININE FOR GFR 0.65 MG/DL (0.55-1.30); GLOMERULAR FILTRATION RATE > 60.0 (>45); GLUCOSE, FASTING 95 MG/DL (74-106); HDL CHOLESTEROL 64.4 MG/DL (>40); HEMOGLOBIN A1c 5.1 % (4.0-6.0); LDL CHOLESTEROL 60.4 MG/DL (<100); NON-HDL-C 77.6 MG/DL; POTASSIUM SERUM 4.2 MMOL/L (3.5-5.1); SODIUM LEVEL 137 MMOL/L (136-145); TRIGLYCERIDES LEVEL 86 MG/DL (<150)
[2023-04-09 15:08] LABS: TOTAL 25(OH) VITAMIN D 39.1 NG/ML (20.0-100.0)
[2023-04-09 15:09] LABS: THYROID STIMULATING HORMONE 0.483 uIU/ML (0.55-4.78)
[2023-04-09 15:10] LABS: FREE T4 1.18 NG/DL (0.89-1.76)
== END ==
LOC: M PLALAB 10:08
PROVIDERS: ATTEND Student in an Organized Health Care Education/Training Program
DX: Z13.1 Encounter for screening for diabetes mellitus (principal); Z13.0 Encounter for screening for diseases of the blood and blood-forming organs and certain disorders involving the immune mechanism; Z13.21 Encounter for screening for nutritional disorder; Z13.29 Encounter for screening for other suspected endocrine disorder

== ENCOUNTER → 2023-05-06 | Outpatient (REF) | payer OTHER | LOC: M SFHCWAGY 17:37 | PROVIDERS: ATTEND Nurse Practitioner Family | DX: Z12.4 Encounter for screening for malignant neoplasm of cervix (principal) | CPT/HCPCS: 87624; G0123 ==

== ENCOUNTER → 2023-06-18 | Outpatient (CLI) | payer OTHER | LOC: M WHC 09:05 | PROVIDERS: ATTEND Student in an Organized Health Care Education/Training Program | DX: Z12.31 Encounter for screening mammogram for malignant neoplasm of breast (principal) ==

== ENCOUNTER → 2024-04-19 | Outpatient (CLI) | payer OTHER ==
[~2024-04-19] MED LIST changes: +FERR325T14 PO; -IRON325T9 PO
[2024-04-19 14:07] LABS: HEMOGLOBIN A1c 5.2 % (4.0-6.0)
[2024-04-19 14:20] LABS: THYROID STIMULATING HORMONE 0.416 uIU/ML (0.55-4.78); TOTAL 25(OH) VITAMIN D 40.8 NG/ML (20.0-100.0)
[2024-04-19 14:28] LABS: CHOLESTEROL RISK RATIO 2.77 (<5); HDL CHOLESTEROL 51.9 MG/DL (>40); LDL CHOLESTEROL 69.5 MG/DL (<100); NON-HDL-C 92.1 MG/DL
== END ==
LOC: M PLALAB 10:44
PROVIDERS: ATTEND Student in an Organized Health Care Education/Training Program
DX: Z00.00 Encounter for general adult medical examination without abnormal findings (principal); G47.00 Insomnia, unspecified; E04.1 Nontoxic single thyroid nodule

== ENCOUNTER → 2024-05-22 | Outpatient (CLI) | payer OTHER | LOC: M RAD 07:24 | PROVIDERS: ATTEND Student in an Organized Health Care Education/Training Program | DX: Z12.2 Encounter for screening for malignant neoplasm of respiratory organs (principal); F17.211 Nicotine dependence, cigarettes, in remission ==

== ENCOUNTER → 2024-07-20 | Outpatient (CLI) | payer OTHER | LOC: M WHC 14:10 | PROVIDERS: ATTEND Student in an Organized Health Care Education/Training Program | DX: E04.1 Nontoxic single thyroid nodule (principal) ==

== ENCOUNTER → 2025-02-19 | Outpatient (CLI) | payer OTHER ==
[~2025-02-19] MED LIST changes: -AMBI10TA PO; -AMBI12.52 PO; +ZOLP-533 PO; +ZOLP12.561 PO
[2025-02-19 17:45] LABS: BLOOD UREA NITROGEN 24 MG/DL (9-23); CALCIUM LEVEL 9.8 MG/DL (8.3-10.6); CARBON DIOXIDE LEVEL 27 MMOL/L (20-31); CHLORIDE LEVEL 102 MMOL/L (98-107); CREATININE FOR GFR 0.71 MG/DL (0.55-1.30); GLOMERULAR FILTRATION RATE > 90.0 (>45); GLUCOSE, FASTING 100 MG/DL (74-106); POTASSIUM SERUM 4.2 MMOL/L (3.5-5.1); SODIUM LEVEL 138 MMOL/L (136-145)
== END ==
LOC: M PLALAB 15:46
PROVIDERS: ATTEND Student in an Organized Health Care Education/Training Program
DX: I10 Essential (primary) hypertension (principal)

== ENCOUNTER → 2025-06-08 | Outpatient (REF) | payer OTHER ==
[~2025-06-08] MED LIST changes: +LISI40TA10 PO; -LISI40TA4 PO
== END ==
LOC: M SFHCPLAZ 11:11
PROVIDERS: ATTEND Student in an Organized Health Care Education/Training Program
DX: Z53.9 Procedure and treatment not carried out, unspecified reason (principal)

== ENCOUNTER → 2025-07-02 | Outpatient (CLI) | payer OTHER ==
[2025-07-02 15:27] LABS: ESTIMATED AVERAGE GLUCOSE 108.0 MG/DL (60-110)
[2025-07-02 15:35] LABS: ALT/SGPT 23.0 U/L (7.0-40); AST/SGOT 20.0 U/L (<34); CALCIUM LEVEL 9.2 MG/DL (8.3-10.6); CARBON DIOXIDE LEVEL 26.0 MMOL/L (20-31); CHLORIDE LEVEL 107.0 MMOL/L (98-107); CHOLESTEROL LEVEL 135.0 MG/DL (<200); CHOLESTEROL RISK RATIO 2.88 (<5); CREATININE FOR GFR 0.79 MG/DL (0.55-1.30); GLOMERULAR FILTRATION RATE 84.0 (>45); LDL CHOLESTEROL 56.4 MG/DL (<100); NON-HDL-C 88.2 MG/DL; POTASSIUM SERUM 3.9 MMOL/L (3.5-5.1); SODIUM LEVEL 141.0 MMOL/L (136-145); TRIGLYCERIDES LEVEL 159.0 MG/DL (<150)
== END ==
LOC: M RAD 14:32
PROVIDERS: ATTEND Student in an Organized Health Care Education/Training Program
DX: F17.210 Nicotine dependence, cigarettes, uncomplicated (principal)

== ENCOUNTER 2025-07-30 07:30 | Day surgery (SDC) | payer OTHER ==
[~2025-07-30] VITALS: Ht 160 cm; Wt 74.4 kg
[~2025-07-30 07:30] MED LIST changes: +AMLO1TAB24 PO; +ATOR1TAB21 PO; +THERTAB52 PO
[2025-07-30] MEDS ORDERED: LIDOCAINE 2% 100 MG/5 ML SDV (FOR ANES.) As Ordered ONE (07:57)
[2025-07-30] MEDS ORDERED: GLYCOPYRROLATE INJ 0.2 MG/ML 2 ML VIAL As Ordered ONE (07:57)
[2025-07-30 08:39] VITALS: BP 131/79; O2SAT 98
== END 2025-07-30 08:42 | disposition home or self-care (01) ==
LOC: M OPP 07:30
PROVIDERS: ATTEND Internal Medicine Gastroenterology
DX: K62.1 Rectal polyp (principal); K62.89 Other specified diseases of anus and rectum; Z86.0101 Personal history of adenomatous and serrated colon polyps; Z79.899 Other long term (current) drug therapy
CPT/HCPCS: 45380; 45385; 88305; J1596